=== PATIENT | female | born 1955 | race Hispanic/Latino ===

== ENCOUNTER 2024-09-14 05:16 | Observation (INO) | payer BC ==
[2024-09-12 10:34] LABS: BASOPHILS % 0.6 % (0.0-1.0); EOSINOPHILS # (AUTO) 0.1 (0.0-0.4); EOSINOPHILS % 1.1 % (0.0-6.0); HEMATOCRIT 41.1 % (34.2-44.1); HEMOGLOBIN 13.7 g/dL (12.0-16.0); LYMPHOCYTES # (AUTO) 2.3 (1.0-3.2); LYMPHOCYTES % 35.3 % (18.0-39.1); MEAN CORPUSCULAR HGB CONC 33.3 g/dL (31-35); MONOCYTES # (AUTO) 0.8 (0.2-0.8); MONOCYTES % 12.3 % (4.4-11.3); NEUTROPHILS # (AUTO) 3.3 (2.1-6.9); NEUTROPHILS % 50.5 % (38.7-80.0); PLATELET COUNT 188 x10e3/uL (140-360); RED BLOOD COUNT 4.28 x10e6/uL (3.6-5.1); RED CELL DISTRIBUTION WIDTH 12.4 % (11.7-14.4); WHITE BLOOD COUNT 6.52 x10e3/uL (4.8-10.8)
[2024-09-12 10:39] LABS: INR 0.93
[2024-09-12 10:40] LABS: PARTIAL THROMBOPLASTIN TIME 29.9 seconds (23.8-35.5)
[2024-09-12 10:45] LABS: ANION GAP 11.8 mmol/L (8-16); CALCIUM 8.7 mg/dL (8.4-10.2); CREATININE, SERUM 0.73 mg/dL (0.57-1.11); POTASSIUM 3.8 mmol/L (3.5-5.1)
[2024-09-14] VITALS (9 sets, daily range): BP systolic 106–140; BP diastolic 57–74; PULSE 55–70; RESP 18–48; TEMP 97.5–98.4; O2SAT 95–100
[~2024-09-14] VITALS: Ht 162.6 cm; Wt 68.0 kg
[~2024-09-14 05:16] MED LIST: AMLODIPINE BESYL5 MG PO; BENICAR5 MG PO; CENTRUM ADULTS1 EACH PO; ESTRADIOL1 MG PO; FLONASE ALLERG9.9 ML INH; MONTELUKAST SOD10 MG PO; VITAMIN C ZINC PO
[2024-09-14] MEDS: CEFAZOLIN SODIUM 2 GM ONE (06:45)
[2024-09-14] MEDS: LACTATED RINGER'S 1,000 ML ONE (06:45)
[2024-09-14] MEDS ORDERED: FENTANYL CITRATE/PF 100MCG/2 ML INJ ONE ×2 (07:07→09:28)
[2024-09-14] MEDS ORDERED: PROPOFOL IV EMULSION 10 MG/ML 20 ML VIAL ONE ×2 (07:07→08:42)
[2024-09-14] MEDS ORDERED: ROCURONIUM BROMIDE 1 ML IV ONE (07:07)
[2024-09-14] MEDS ORDERED: LIDOCAINE HCL 2% LOCAL INJ 5 ML SDV VIAL INJ ONE (07:07)
[2024-09-14] MEDS ORDERED: SCOPOLAMINE 1 MG PATCH ONE (07:28)
[2024-09-14] MEDS ORDERED: FAMOTIDINE 20 MG/2 ML VIAL IV ONE (08:12)
[2024-09-14] MEDS ORDERED: ONDANSETRON HCL INJ 2MG/ML 2ML 2 MG/ML VIAL ONE (08:12)
[2024-09-14] MEDS ORDERED: DEXAMETHASONE SOD PHOS INJ 4 MG/ML SDV ONE (08:12)
[2024-09-14] MEDS ORDERED: ACETAMINOPHEN 1000 MG/100 ML 100 ML IV ONE (08:21)
[2024-09-14] MEDS ORDERED: PHENYLEPHRINE HCL 1% 10 MG/ML VIAL ONE (08:34)
[2024-09-14] MEDS ORDERED: SUGAMMADEX SODIUM 200 MG/2 ML VIAL IV ONE (08:38)
[2024-09-14] MEDS ORDERED: HYDROCODON-ACE1 EA12 PO (09:09)
[2024-09-14] MEDS ORDERED: MEPERIDINE HCL INJ 25 MG/ML VIAL ONE (09:14)
[2024-09-14] MEDS ORDERED: MAGNESIUM/ALUMINUM/SIMETHICONE 30 ML UDC PO PRN (09:15)
[2024-09-14] MEDS ORDERED: HYDROMORPHONE 2MG/ML IV PRN (09:15)
[2024-09-14] MEDS ORDERED: ACETAMINOPHEN 325 MG TAB PO PRN (09:15)
[2024-09-14] MEDS ORDERED: ZOLPIDEM TARTRATE 5 MG TAB PO PRN (09:15)
[2024-09-14] MEDS ORDERED: PROMETHAZINE HCL (IM) 25 MG/ML VIAL IM PRN (09:15)
[2024-09-14] MEDS ORDERED: CARISOPRODOL 350 MG TAB PO PRN (09:15)
[2024-09-14] MEDS: MEPERIDINE HCL INJ 25 MG/ML VIAL IV ONE (09:17)
[2024-09-14] MEDS: FENTANYL CITRATE/PF 100MCG/2 ML INJ IV ONE (09:30)
[2024-09-14] MEDS: OXYCODONE/ACETAMINOPHEN 5-325 1 EACH TABLET PO PRN ×2 (10:38→14:51)
[2024-09-14] MEDS: LACTATED RINGER'S 1,000 ML IV SCH (10:39)
[2024-09-14] MEDS ORDERED: MORPHINE SULFATE 5 MG/ML VIAL IM PRN (10:45)
[2024-09-14] MEDS: ONDANSETRON HCL INJ 2MG/ML 2ML 2 MG/ML VIAL IV PRN (12:59)
[2024-09-14] MEDS ORDERED: SEVOFLURANE INHAL SOLN 250 ML PEN BTL ONE (13:54)
[2024-09-14] MEDS ORDERED: MONTELUKAST SODIUM 10 MG TAB PO PRN (17:00)
[2024-09-14] MEDS: OLMESARTAN MEDOXOMIL 5 MG TABLET PO SCH (17:25)
[2024-09-15 03:25] VITALS: BP 112/57; PULSE 58; RESP 16; TEMP 98; O2SAT 99
[2024-09-15 07:30] VITALS: BP 106/63; PULSE 62; RESP 16; TEMP 98.2; O2SAT 99
[2024-09-15] MEDS: MULTIVITAMINS/MINERALS TAB PO SCH (08:34)
[2024-09-15 08:38] VITALS: BP 106/63; PULSE 62; RESP 18; TEMP 98.2; O2SAT 97
[2024-09-15] MEDS: ESTRADIOL 1 MG TAB PO SCH (09:00)
[2024-09-15] MEDS: AMLODIPINE BESYLATE 5 MG TAB PO SCH (09:00)
[2024-09-15] MEDS: FLUTICASONE PROPIONATE NASAL SPRAY NS SCH (09:56)
== END 2024-09-15 11:00 | disposition home or self-care (01) ==
LOC: OR 05:16 → PACU V 09:04 → MED/SURG3 10:09
PROVIDERS: ADMIT Neurological Surgery; ATTEND Neurological Surgery
DX: M51.17 Intervertebral disc disorders with radiculopathy, lumbosacral region (principal); I10 Essential (primary) hypertension; J45.909 Unspecified asthma, uncomplicated; M19.90 Unspecified osteoarthritis, unspecified site; Z01.810 Encounter for preprocedural cardiovascular examination; Z01.812 Encounter for preprocedural laboratory examination; Z01.818 Encounter for other preprocedural examination
CPT/HCPCS: 36415 ×2; 63047; 71046; 72020; 80048; 82948; 85025; 85610; 85730; 86850; 86900; 88304; 88311; 93005; G0378 ×2; J0131; J0690 ×2; J1100; J2003; J2175; J2371; J2405 ×2; J2704; J3010; J7121